=== PATIENT | female | born 1940 ===

== ENCOUNTER 2021-02-06 07:00 | Observation (INO) ==
[2021-02-06 08:04] LABS: ABS Basophils 0.1 10^3/ul (0-0.2); ABS Eosinophils 0.2 10^3/ul (0-0.6); ABS Lymphocytes 2.2 10^3/ul (1.0-4.8); ABS Monocytes 0.7 10^3/ul (0-0.8); ABS Neutrophils 6.7 10^3/ul (1.5-7.7); Eosinophil % 1.8 %; Hematocrit 41 % (35-47); Hemoglobin 14.2 g/dL (12.0-16.0); Lymphocyte % 22.3 %; Mean Corpuscular HGB Conc 34 g/dL (31-36); Mean Corpuscular Hemoglobin 32 pg (27-31); Mean Corpuscular Volume 92 fL (80-97); Mean Platelet Volume 8.4 fL (7.4-10.4); Platelet Count 202 10^3/uL (150-450); Red Cell Distribution Width 13 % (10-15)
[2021-02-06 08:23] LABS: Albumin 4.1 g/dL (3.2-5.2); Albumin/Globulin Ratio 1.4 (1-3); Calcium 9.1 mg/dL (8.6-10.3); EGFR African American 88.6 (>60); EGFR Non-African American 73.2 (>60); Magnesium 2.1 mg/dL (1.9-2.7); Total Bilirubin 0.4 mg/dL (0.2-1.0); Total Protein 7.1 g/dL (6.4-8.9)
[2021-02-06 09:28] LABS: Potassium 3.8 mmol/L (3.5-5.0)
[2021-02-06] MEDS ORDERED: Ondansetron 4 mg VIAL 2 MG/ML 2 ml VIAL IV PRN (09:36)
[2021-02-06] MEDS ORDERED: Labetalol IV 5 MG/ML 20 ml VIAL IV PUSH ONE (09:39)
[2021-02-06] MEDS ORDERED: NS 0.9% 1000 ml BAG 1,000 ML IV ONE (09:49)
[2021-02-06] MEDS: Enoxaparin 40 MG/0.4 ML SYR SUBCUT SCH (11:25)
[2021-02-07] MEDS: Enoxaparin 40 MG/0.4 ML SYR SUBCUT SCH (08:13)
[2021-02-07] MEDS ORDERED: Cholecalciferol (VIT D3) 1,000 unit TAB PO SCH (09:00)
[2021-02-07 11:27] VITALS: BP 171/59
== END 2021-02-07 14:54 | disposition home or self-care (01) ==
LOC: ED 07:00 → MEDTELE 07:00
PROVIDERS: ADMIT Internal Medicine; ATTEND Internal Medicine